=== PATIENT | female | born 1955 | race Caucasian/White ===

== ENCOUNTER → 2017-04-04 | Outpatient (CLI) | payer BC ==
--- NOTE | 2017-04-09 07:48 | MM ---
Reason for exam: screening (asymptomatic). Last mammogram was performed 1 year and 2 months ago. History: Patient is postmenopausal. Family history of breast cancer in mother at age 61 and breast cancer in sister at age 61. Took hormonal contraceptives for 15 years. Physical Findings: A clinical breast exam by your physician is recommended on an annual basis and results should be correlated with mammographic findings. MG Screening Mammo w CAD Bilateral CC and MLO view(s) were taken. Prior study comparison: February 14, 2016, bilateral MG screening mammo w CAD. January 18, 2015, bilateral MG diagnostic mammo w CAD MICHAEL. The breast tissue is heterogeneously dense. This may lower the sensitivity of mammography. There is chronic nodularity bilaterally. No significant changes when compared with prior studies. ASSESSMENT: Benign, BI-RAD 2 RECOMMENDATION: Routine screening mammogram of both breasts in 1 year.
== END | disposition home or self-care (01) ==
LOC: RADMAMWWP 08:00
PROVIDERS: ATTEND Family Medicine
DX: Z12.31 Encounter for screening mammogram for malignant neoplasm of breast (principal)

== ENCOUNTER → 2018-04-22 | Outpatient (CLI) | payer BC ==
--- NOTE | 2018-04-23 11:43 | MM ---
Reason for exam: screening (asymptomatic). Last mammogram was performed 1 year and 1 month ago. History: Patient is postmenopausal. Family history of breast cancer in mother at age 61 and breast cancer in sister at age 61. Took hormonal contraceptives for 15 years. Physical Findings: A clinical breast exam by your physician is recommended on an annual basis and results should be correlated with mammographic findings. MG 3D Screening Mammo W/Cad Bilateral CC and MLO view(s) were taken. Prior study comparison: April 04, 2017, bilateral MG screening mammo w CAD. February 14, 2016, bilateral MG screening mammo w CAD. The breast tissue is heterogeneously dense. This may lower the sensitivity of mammography. Finding: There is stable architectural distortion in the outer quadrant, posterior position of the left breast. New 11mm round circumscribed lesion in the right breast middle depth upper outer aspect 6-7cm from the nipple. ASSESSMENT: Incomplete: need additional imaging evaluation, BI-RAD 0 RECOMMENDATION: Ultrasound of the right breast. [facility] will attempt to contact patient to return for ultrasound.
== END | disposition home or self-care (01) ==
LOC: RADMAMWWP 10:22
PROVIDERS: ATTEND Family Medicine
DX: Z12.31 Encounter for screening mammogram for malignant neoplasm of breast (principal)
CPT/HCPCS: 77063; 77067

== ENCOUNTER → 2018-04-25 | Outpatient (CLI) | payer BC ==
--- NOTE | 2018-04-25 10:48 | USB ---
Reason for exam: additional evaluation requested from abnormal screening. History: Patient is postmenopausal. Family history of breast cancer in mother at age 61 and breast cancer in sister at age 61. Took hormonal contraceptives for 15 years. Physical Findings: Nurse did not find any significant physical abnormalities on exam. US Breast Workup Limited RT Right limited breast ultrasound including focal area of concern, retroareolar and axilla demonstrates a 9 x 4 x 8mm cystic cluster at 7 o'clock, a 9 x 6 x 8mm cystic lesion at 8 o'clock, a 5 x 2 x 5mm lesion too small to characterize at 11 o'clock and a 4 x 3 x 3mm lesion too small to characterize at 12 o'clock. These results were verbally communicated with the patient and result sheet given to the patient on 04/25/18. ASSESSMENT: Probably benign, BI-RAD 3 RECOMMENDATION: Follow-up diagnostic mammogram and ultrasound of the right breast in 6 months.
== END ==
LOC: RADUSWWP 09:37
PROVIDERS: ATTEND Family Medicine
DX: R92.8 Other abnormal and inconclusive findings on diagnostic imaging of breast (principal)

== ENCOUNTER 2018-06-05 19:21 | Emergency (ER) | payer BC ==
[2018-06-05] MEDS ORDERED: SODIUM CHLORIDE 0.9% 500 ML 500 ML IV STA (20:06)
--- NOTE | 2018-06-05 20:10 | ED ---
Abdominal Pain HPI - General Source: patient Mode of arrival: wheelchair <Dorcas Brewer - Last Filed: 06/05/18 22:15> <Laura Alarcon - Last Filed: 06/06/18 04:43> - General Chief Complaint: Abdominal Pain Stated Complaint: abd pain Time Seen by Provider: 06/05/18 19:56 - History of Present Illness Initial Comments: 62-year-old female patient presents to the emergency department today for evaluation of midepigastric abdominal pain. Patient states the pain started suddenly while eating approximate one hour ago. Patient states that the pain was sharp and cramping. She denies any radiation of the pain to her back. Patient states that since the pain started she can detect a gurgling in the area of her stomach. Patient has had 1 previous episode similar to this about a week ago. States in the pain comes on it is sudden and causes her to double over. Patient denies any shortness of breath, sweats, or chest pain with this event. She denies any fevers or chills. States that she was eating red beans and rice when it started. Patient does have history of cholecystectomy and rheumatoid arthritis. She denies any nausea, vomiting, constipation, or diarrhea. She is passing gas. Denies any hematuria, dysuria, urinary frequency , urinary urgency. Patient denies any recent rash, back pain, numbness, tingling , dizziness, weakness, headache, visual changes, or any other complaints. (Dorcas Brewer) - Related Data Home Medications Medication Instructions Recorded Confirmed Acetaminophen [Tylenol Arthritis] 650 mg PO DAILY PRN 06/05/18 06/05/18 Aspirin EC [Ecotrin Low Dose] 81 mg PO DAILY 06/05/18 06/05/18 Azithromycin [Zithromax Z-pack] See Taper PO DIRECTED 06/05/18 06/05/18 Benzonatate [Tessalon Perles] 100 mg PO TID PRN 06/05/18 06/05/18 Biotin 5 mg PO DAILY 06/05/18 06/05/18 Mervin/D3/Mag11/Zinc/[employer]/Arnav/Bor 1 tab PO DAILY 06/05/18 06/05/18 [Caltrate 600+D Plus Tablet] Cetirizine HCl [Zyrtec] 10 mg PO DAILY 06/05/18 06/05/18 Cranberry Fruit Extract [Cranberry] 200 mg PO DAILY 06/05/18 06/05/18 Cyclobenzaprine [Flexeril] 10 mg PO HS PRN 06/05/18 06/05/18 Furosemide [Lasix] 20 mg PO DAILY 06/05/18 06/05/18 Glucosam/Chond/Hyalu/Cf Borate 3 tab PO DAILY 06/05/18 06/05/18 [Move Free Joint Health Tablet] Hydroxychloroquine Sulfate 200 mg PO BID 06/05/18 06/05/18 [Plaquenil] Levothyroxine Sodium [Synthroid] 137 mcg PO DAILY 06/05/18 06/05/18 Lisinopril [Zestril] 20 mg PO DAILY 06/05/18 06/05/18 Magnesium Oxide [Singh] 500 mg PO DAILY 06/05/18 06/05/18 Milk Thistle 150 mg PO DAILY 06/05/18 06/05/18 Montelukast Sodium [Singulair] 10 mg PO DAILY 06/05/18 06/05/18 Davilla-3 Fatty Acids [Davilla-3] 1,000 mg PO DAILY 06/05/18 06/05/18 Omeprazole 20 mg PO DAILY 06/05/18 06/05/18 Tetrahydrozoline 0.05% Ophth 1 drop BOTH EYES DAILY 06/05/18 06/05/18 [Visine Eye Drops] azaTHIOprine [Imuran] 50 mg PO TID 06/05/18 06/05/18 Allergies Allergy/AdvReac Type Severity Reaction Status Date / Time No Known Allergies Allergy Verified 06/05/18 19:41 Review of Systems ROS Other: All systems not noted in ROS Statement are negative. <Dorcas Brewer - Last Filed: 06/05/18 22:15> ROS Other: All systems not noted in ROS Statement are negative. <Laura Alarcon - Last Filed: 06/06/18 04:43> ROS Statement: Those systems with pertinent positive or pertinent negative responses have been documented in the HPI. Past Medical History Past Medical History: GERD/Reflux, Hypertension, Thyroid Disorder Additional Past Medical History / Comment(s): Hashimotos, Rheumatoid arthritis, MTHFR enzyme gene mutation, hiatal hernia History of Any Multi-Drug Resistant Organisms: None Reported Past Surgical History: Cholecystectomy Past Psychological History: No Psychological Hx Reported Smoking Status: Never smoker Past Alcohol Use History: Occasional Past Drug Use History: None Reported <Dorcas Brewer M - Last Filed: 06/05/18 22:15> General Exam General appearance: alert, in no apparent distress, other (This is a well- developed, well-nourished adult female patient in no acute distress. Vital signs upon presentation are temperature 98.0F, pulse 69, respirations 22, blood pressure 124/65, pulse ox 98% on room air.) Eye exam: Present: normal appearance, PERRL, EOMI. Absent: scleral icterus, conjunctival injection, periorbital swelling ENT exam: Present: normal exam, normal oropharynx, mucous membranes moist Respiratory exam: Present: normal lung sounds bilaterally. Absent: respiratory distress, wheezes, rales, rhonchi, stridor Cardiovascular Exam: Present: regular rate, normal rhythm, normal heart sounds. Absent: systolic murmur, diastolic murmur, rubs, gallop, clicks GI/Abdominal exam: Present: soft, normal bowel sounds. Absent: distended, tenderness, guarding, rebound, rigid Neurological exam: Present: alert, oriented X3, CN II-XII intact Psychiatric exam: Present: normal affect, normal mood Skin exam: Present: warm, dry, intact, normal color. Absent: rash <Dorcas Brewer M - Last Filed: 06/05/18 22:15> Vital Signs 06/05/18 06/05/18 19:21 22:15 Temperature 98.0 F 98.3 F Pulse Rate 69 72 Respiratory 22 16 Rate Blood Pressure 124/65 138/62 O2 Sat by Pulse 98 98 Oximetry Medical Decision Making - Lab Data Result diagrams: 06/05/18 20:30 06/05/18 20:30 - EKG Data -: EKG Interpreted by Wy - Radiology Data Radiology results: report reviewed, image reviewed <Dorcas Brewer - Last Filed: 06/05/18 22:15> - Lab Data Result diagrams: 06/05/18 20:30 06/05/18 20:30 <Laura Alarcon - Last Filed: 06/06/18 04:43> - Medical Decision Making 62-year-old female patient presents to the emergency department today for complaints of midepigastric abdominal pain that started approximately an hour prior to arrival while she was eating. Pain had resolved by the time of my evaluation however patient did request testing. We did perform labs which were unremarkable. EKG showed normal sinus rhythm. KUB abdominal x-ray was obtained and did show overall nonspecific bowel gas pattern however did show presence of the enlarged running hiatal hernia. Upon reevaluation patient still resting comfortably with no pain. We did discuss findings and that her symptoms could be related to the hiatal hernia. She has seen Dr. Ochoa in the past, she'll be discharged with instructions to follow-up with him for further evaluation. She is instructed to follow up with her primary care physician for recheck in 1-2 days. Return parameters were discussed in detail. She verbalizes understanding and agrees with this plan. (Dorcas Brewer) I was available for consultation in the emergency department. The history and physical exam were done by the midlevel provider. I was consulted for this patient's care. I reviewed the case with the midlevel provider and based on their presentation of the patient, I agree with the assessment, medical decision making and plan of care as documented. (Laura Alarcon) - Lab Data Lab Results 06/05/18 06/05/18 06/05/18 Range/Units 20:30 20:30 20:30 WBC 5.6 (3.8-10.6) k/uL RBC 4.31 (3.80-5.40) m/uL Hgb 13.7 (11.4-16.0) gm/dL Hct 40.5 (34.0-46.0) % MCV 94.0 (80.0-100.0) fL MCH 31.8 (25.0-35.0) pg MCHC 33.9 (31.0-37.0) g/dL RDW 14.4 (11.5-15.5) % Plt Count 375 (150-450) k/uL Neutrophils % 65 % Lymphocytes % 23 % Monocytes % 6 % Eosinophils % 2 % Basophils % 1 % Neutrophils # 3.6 (1.3-7.7) k/uL Lymphocytes # 1.3 (1.0-4.8) k/uL Monocytes # 0.4 (0-1.0) k/uL Eosinophils # 0.1 (0-0.7) k/uL Basophils # 0.0 (0-0.2) k/uL PT (9.0-12.0) sec INR (<1.2) APTT (22.0-30.0) sec Sodium 138 (137-145) mmol/L Potassium 4.2 (3.5-5.1) mmol/L Chloride 105 (98-107) mmol/L Carbon Dioxide 25 (22-30) mmol/L Anion Gap 8 mmol/L BUN 31 H (7-17) mg/dL Creatinine 0.99 (0.52-1.04) mg/dL Est GFR (CKD-EPI)AfAm 72 (>60 ml/min/1.73 sqM) Est GFR (CKD-EPI)NonAf 62 (>60 ml/min/1.73 sqM) Glucose 121 H (74-99) mg/dL Calcium 9.6 (8.4-10.2) mg/dL Total Bilirubin 0.8 (0.2-1.3) mg/dL AST 33 (14-36) U/L ALT 39 (9-52) U/L Alkaline Phosphatase 137 H (38-126) U/L Total Creatine Kinase 86 (30-135) U/L CK-MB (CK-2) 1.1 (0.0-2.4) ng/mL CK-MB (CK-2) Rel Index 1.3 Troponin I <0.012 (0.000-0.034) ng/mL Total Protein 6.5 (6.3-8.2) g/dL Albumin 3.8 (3.5-5.0) g/dL Amylase 58 (30-110) U/L Lipase 163 (23-300) U/L Urine Color Urine Appearance (Clear) Urine pH (5.0-8.0) Ur Specific Wolcott (1.001-1.035) Urine Protein (Negative) Urine Glucose (UA) (Negative) Urine Ketones (Negative) Urine Blood (Negative) Urine Nitrite (Negative) Urine Bilirubin (Negative) Urine Urobilinogen (<2.0) mg/dL Ur Leukocyte Esterase (Negative) Urine RBC (0-5) /hpf Urine WBC (0-5) /hpf Ur Squamous Epith Cells (0-4) /hpf Urine Bacteria (None) /hpf Hyaline Casts (0-2) /lpf Urine Mucus (None) /hpf 06/05/18 06/05/18 Range/Units 20:30 21:17 WBC (3.8-10.6) k/uL RBC (3.80-5.40) m/uL Hgb (11.4-16.0) gm/dL Hct (34.0-46.0) % MCV (80.0-100.0) fL MCH (25.0-35.0) pg MCHC (31.0-37.0) g/dL RDW (11.5-15.5) % Plt Count (150-450) k/uL Neutrophils % % Lymphocytes % % Monocytes % % Eosinophils % % Basophils % % Neutrophils # (1.3-7.7) k/uL Lymphocytes # (1.0-4.8) k/uL Monocytes # (0-1.0) k/uL Eosinophils # (0-0.7) k/uL Basophils # (0-0.2) k/uL PT 10.1 (9.0-12.0) sec INR 1.0 (<1.2) APTT 22.8 (22.0-30.0) sec Sodium (137-145) mmol/L Potassium (3.5-5.1) mmol/L Chloride (98-107) mmol/L Carbon Dioxide (22-30) mmol/L Anion Gap mmol/L BUN (7-17) mg/dL Creatinine (0.52-1.04) mg/dL Est GFR (CKD-EPI)AfAm (>60 ml/min/1.73 sqM) Est GFR (CKD-EPI)NonAf (>60 ml/min/1.73 sqM) Glucose (74-99) mg/dL Calcium (8.4-10.2) mg/dL Total Bilirubin (0.2-1.3) mg/dL AST (14-36) U/L ALT (9-52) U/L Alkaline Phosphatase (38-126) U/L Total Creatine Kinase (30-135) U/L CK-MB (CK-2) (0.0-2.4) ng/mL CK-MB (CK-2) Rel Index Troponin I (0.000-0.034) ng/mL Total Protein (6.3-8.2) g/dL Albumin (3.5-5.0) g/dL Amylase (30-110) U/L Lipase (23-300) U/L Urine Color Yellow Urine Appearance Clear (Clear) Urine pH 5.5 (5.0-8.0) Ur Specific Wolcott 1.025 (1.001-1.035) Urine Protein 1+ H (Negative) Urine Glucose (UA) Negative (Negative) Urine Ketones Negative (Negative) Urine Blood Negative (Negative) Urine Nitrite Negative (Negative) Urine Bilirubin Negative (Negative) Urine Urobilinogen <2.0 (<2.0) mg/dL Ur Leukocyte Esterase Moderate H (Negative) Urine RBC 1 (0-5) /hpf Urine WBC 5 (0-5) /hpf Ur Squamous Epith Cells 4 (0-4) /hpf Urine Bacteria Rare H (None) /hpf Hyaline Casts 24 H (0-2) /lpf Urine Mucus Moderate H (None) /hpf - EKG Data EKG Comments: EKG obtained at 2023 shows normal sinus rhythm with ventricular rate is 74, OK interval 168, QR bahai 94, QTC 426, QTc 472. No evidence of ST elevation or depression. (Dorcas Brewer) - Radiology Data Two-view x-ray of the abdomen was obtained. There is no sign of intestinal structure pneumoperitoneum. Fecal pattern is normal. There are clips from cholecystectomy. There is large hiatal hernia. There are no pathologic calcifications over the kidneys. Impression by Dr. Torres shows nonacute abdomen. Large hiatal hernia. No significant change. Hiatal hernia is larger. (Dorcas Brewer) Disposition Is patient prescribed a controlled substance at d/c from ED?: No Time of Disposition: 21:57 <Dorcas Brewer - Last Filed: 06/05/18 22:15> <Laura Alarcon - Last Filed: 06/06/18 04:43> Clinical Impression: Abdominal pain, Hiatal hernia Disposition: HOME SELF-CARE Condition: Good Instructions: Hiatal Hernia (ED), Abdominal Pain (ED) Additional Instructions: Follow-up with GI specialist for recheck as soon as possible. Follow-up with your primary care physician for recheck in 1-2 days. Return here immediately for any new, worsening, or concerning symptoms Referrals: Zach King MD [Primary Care Provider] - 1-2 days Franklin Andrews MD [STAFF PHYSICIAN] - 1-2 days
[2018-06-05 20:43] LABS: Basophils % (A) 1 %; Eosinophils # (A) 0.1 k/uL (0-0.7); Eosinophils % (A) 2 %; HCT 40.5 % (34.0-46.0); HGB 13.7 gm/dL (11.4-16.0); Lymphocytes # (A) 1.3 k/uL (1.0-4.8); Lymphocytes % (A) 23 %; MCH 31.8 pg (25.0-35.0); MCHC 33.9 g/dL (31.0-37.0); Mean Platelet Volume 6.9; Monocytes # (A) 0.4 k/uL (0-1.0); Monocytes % (A) 6 %; Neutrophils # (A) 3.6 k/uL (1.3-7.7); Neutrophils % (A) 65 %; Platelet Count 375 k/uL (150-450); RBC 4.31 m/uL (3.80-5.40); RDW 14.4 % (11.5-15.5); WBC 5.6 k/uL (3.8-10.6)
--- NOTE | 2018-06-05 20:45 | XR ---
EXAMINATION TYPE: XR KUB DATE OF EXAM: 06/05/2018 COMPARISON: 10/20/2012 HISTORY: Epigastric pain TECHNIQUE: 2 views upright FINDINGS: There is no sign of intestinal obstruction or pneumoperitoneum. Fecal pattern is normal. Th ere are clips from cholecystectomy. There is a large hiatal hernia. There are no pathologic calcifica tions over the kidneys. IMPRESSION: Nonacute abdomen. Large hiatal hernia. No significant change. Hiatal hernia is larger.
[2018-06-05 20:51] LABS: Partial Thromboplastin Time 22.8 sec (22.0-30.0); Prothrombin Time 10.1 sec (9.0-12.0)
[2018-06-05 20:55] LABS: Albumin 3.8 g/dL (3.5-5.0); Calcium 9.6 mg/dL (8.4-10.2); Potassium 4.2 mmol/L (3.5-5.1); Total Bilirubin 0.8 mg/dL (0.2-1.3); Total Protein 6.5 g/dL (6.3-8.2)
[2018-06-05 20:57] LABS: Creatine Kinase 86 U/L (30-135)
[2018-06-05 21:08] LABS: Creatine Kinase MB 1.1 ng/mL (0.0-2.4)
[2018-06-05 21:26] LABS: Troponin I <0.012 ng/mL (0.000-0.034)
[2018-06-05 21:38] LABS: Appearance,Urine Clear (Clear); Bacteria,Urine Rare /hpf; Bilirubin,Urine Negative (Negative); Blood,Urine Negative (Negative); Color,Urine Yellow; Glucose,Urine (UA) Negative (Negative); Hyaline Casts,Urine 24 /lpf (0-2); Ketones,Urine Negative (Negative); Leukocyte Esterase,Urine Moderate (Negative); Mucus,Urine Moderate /hpf; Nitrite,Urine Negative (Negative); PH, Urine 5.5 (5.0-8.0); Protein,Urine 1+ (Negative); RBC,Urine 1 /hpf (0-5); Specific Gravity,Urine 1.025 (1.001-1.035); Squamous Epithelial Cell,Urine 4 /hpf (0-4); Urobilinogen,Urine <2.0 mg/dL (<2.0); WBC,Urine 5 /hpf (0-5)
[2018-06-05 22:16] VITALS: BP 138/62; PULSE 72; RESP 16; TEMP 98.3
== END 2018-06-05 22:17 | disposition home or self-care (01) ==
LOC: EC 19:21
DX: K44.9 Diaphragmatic hernia without obstruction or gangrene (principal); I10 Essential (primary) hypertension; E07.9 Disorder of thyroid, unspecified; M06.9 Rheumatoid arthritis, unspecified; Z90.49 Acquired absence of other specified parts of digestive tract; Z79.82 Long term (current) use of aspirin; Z79.899 Other long term (current) drug therapy
CPT/HCPCS: 36415; 74018; 80053; 81001; 82150; 82550; 82553; 83690; 84484; 85025; 85610; 85730; 87086; 93005; 99284

== ENCOUNTER 2018-07-17 09:01 | Day surgery (SDC) | payer BC ==
[2018-07-15 14:41] VITALS: BMI 37.1
[~2018-07-17 09:01] MED LIST: LACTATED RINGERS 1,000 ML IV SCH; LIDOCAINE 1% 20 ML VIAL (10MG/ML) FOR IV START INTRADERMA PRN
[2018-07-17 09:37] VITALS: RESP 16; TEMP 97.9
[2018-07-17 09:48] LABS: Glucose,Whole Blood 97 mg/dL (75-99)
[2018-07-17] MEDS ORDERED: PROPOFOL 10 MG/ML 20 ML VIAL IV ONE (10:28)
[2018-07-17] MEDS ORDERED: LIDOCAINE 1% INJ 10MG/ML (20 ML MDV) ONE (10:28)
[2018-07-17] MEDS ORDERED: MIDAZOLAM 2 MG/2 ML VIAL ONE (10:28)
[2018-07-17] MEDS ORDERED: GLYCOPYRROLATE 0.2 MG/ML 2 ML VIAL ONE (10:28)
[2018-07-17] MEDS ORDERED: fentaNYL (PF) 50 MCG/ML 2 ML AMP ONE (10:28)
--- NOTE | 2018-07-17 11:17 | P.PCN ---
Date of Procedure: 07/17/18 Procedure(s) Performed: Procedure: Esophagogastroduodenoscopy and biopsy and esophageal dilation using the Microvasive xzhyoto-hem-ppjly balloon dilator size 18-20 mm Preoperative diagnosis: Chronic reflux and esophageal dysphagia. Postoperative diagnosis: 1. Hiatal hernia and Schatzki B ring dilated up to 20 mm. 2. Mild antral gastritis. 3. Biopsies obtained from the duodenum, antrum and esophagus. Preparation and sedation: Was provided by anesthesia. Brief clinical history: The patient is a 62-year-old female who is scheduled for this evaluation because of chronic reflux and history of esophageal dysphagia with at least 4 episodes of obstructive dysphagia in the past. The patient was in the emergency room last month with sharp abdominal and side pain and was noted to have an enlarging hiatal hernia on x-ray. She takes omeprazole to control heartburn. Her prior EGD was in 2012. Procedure: With the patient on her left lateral decubitus position and after informed consent and adequate sedation, I passed the Olympus-GIF 190L video upper endoscope through the cricopharyngeus down the esophagus. GE junction was around 33-34 cm from the incisors and there was a moderately sized hiatal hernia and there was a nonobstructing Schatzki B ring. The endoscope was then passed into the stomach which was insufflated with air and inspected in detail including the retroflex view in the cardia. There was some mottling and erythema in the antrum but no ulcers or erosions. Pyloric channel, duodenal bulb, post bulbar area and descending duodenum appeared within normal limits. Because of her symptoms, I obtained biopsies from the duodenum and antrum then I proceeded to dilate the esophagus and I concluded the exam by obtaining biopsies from the esophagus. I used the Microvasive pyrbyyb-bvt-wdotn balloon dilator size 18-20 mm to dilate the esophageal ring. It was passed through the operating channel of the endoscope centered at the level of the stricture and inflated in a stepwise fashion first to 18, then 19 and finally to 20 mm. The patient tolerated the procedure well and did not have any immediate complications. Plan: The patient was reassured. Will await biopsy results and make further plans based on her course and biopsy results. I will keep you updated on her progress.
[2018-07-17 11:50] VITALS: BP 114/78; PULSE 64
== END 2018-07-17 12:06 | disposition home or self-care (01) ==
LOC: ORWHC2ENDO 09:01
DX: K29.50 Unspecified chronic gastritis without bleeding (principal); K21.9 Gastro-esophageal reflux disease without esophagitis; K44.9 Diaphragmatic hernia without obstruction or gangrene; K22.2 Esophageal obstruction; I10 Essential (primary) hypertension; M06.9 Rheumatoid arthritis, unspecified; E72.12 Methylenetetrahydrofolate reductase deficiency; Z88.5 Allergy status to narcotic agent; Z87.891 Personal history of nicotine dependence; E06.3 Autoimmune thyroiditis; Z79.890 Hormone replacement therapy; Z79.82 Long term (current) use of aspirin; Z79.899 Other long term (current) drug therapy
CPT/HCPCS: 88305; 43239; 43249; J2250; J2001; J3010; J2704; C1726

== ENCOUNTER → 2018-11-07 | Outpatient (CLI) | payer BC ==
--- NOTE | 2018-11-07 10:55 | MM ---
Reason for exam: follow-up at short interval from prior study. Last mammogram was performed 7 months ago. History: Patient is postmenopausal. Family history of breast cancer in mother at age 61 and breast cancer in sister at age 61. Took hormonal contraceptives for 15 years. Physical Findings: Nurse Summary: 1cm and 0.5cm nodule in the right breast at 12 o'clock and 6 o'clock (nurse kp). MG 3D Diag Mammo W/Cad RT CC and MLO view(s) were taken of the right breast. Prior study comparison: April 22, 2018, bilateral MG 3d screening mammo w/cad. April 04, 2017, bilateral MG screening mammo w CAD. The breast tissue is heterogeneously dense. This may lower the sensitivity of mammography. No significant new findings when compared with previous films. These results were verbally communicated with the patient and result sheet given to the patient on 11/07/18. ASSESSMENT: Benign, BI-RAD 2 RECOMMENDATION: Return to routine screening mammogram schedule for both breasts. Back on schedule.
--- NOTE | 2018-11-07 10:59 | USB ---
Reason for exam: follow-up at short interval from prior study. History: Patient is postmenopausal. Family history of breast cancer in mother at age 61 and breast cancer in sister at age 61. Took hormonal contraceptives for 15 years. US Breast RT Right complete breast ultrasound includes all four quadrants, the retroareolar region and axilla. Finding demonstrates a 0.5 x 0.3 x 0.3cm lesion too small to characterize at 12 o'clock, a 0.5 x 0.4 x 0.4cm lesion too small to characterize at 3 o'clock, a 0.5 x 0.3 x 0.4cm lesion too small to characterize at 7 o'clock, a 1.0 x 0.6 x 0.7cm cystic lesion at 8 o'clock and a 0.7 x 0.5 x 0.7cm cystic lesion at the posterior nipple. These results were verbally communicated with the patient and result sheet given to the patient on 11/07/18. ASSESSMENT: Probably benign, BI-RAD 3 RECOMMENDATION: Ultrasound of the right breast in 6 months.
== END | disposition home or self-care (01) ==
LOC: RADMAMWWP 09:07
PROVIDERS: ATTEND Family Medicine
DX: R92.8 Other abnormal and inconclusive findings on diagnostic imaging of breast (principal)
CPT/HCPCS: 77061; 77065

== ENCOUNTER → 2019-07-14 | Outpatient (CLI) | payer BC ==
--- NOTE | 2019-07-14 09:48 | USB ---
Reason for exam: clinical finding. History: Patient is postmenopausal. Family history of breast cancer in mother at age 61 and breast cancer in sister at age 61. Took hormonal contraceptives for 15 years. Physical Findings: Nurse did not find any significant physical abnormalities on exam. US Breast RT Right complete breast ultrasound includes all four quadrants, the retroareolar region and axilla. Finding demonstrates a 4 x 2 x 2mm oval, cystic lesion at 12 o'clock, a 4 x 3 x 3mm oval, cystic lesion at 4 o'clock, a 5 x 2 x 6mm oval, cystic lesion at 7 o'clock, a 10 x 7 x 16mm cystic lesion at 8 o'clock, a 4 x 3 x 4mm mixed lesion too small to characterize at 8 o'clock, a 4 x 3 x 3mm mixed lesion at 9 o'clock, a 4 x 5 x 5mm cystic lesion at 10 o'clock and a 9 x 8 x 9mm cystic lesion at the posterior nipple. These results were verbally communicated with the patient and result sheet given to the patient on 07/14/19. ASSESSMENT: Benign, BI-RAD 2 RECOMMENDATION: Follow-up diagnostic mammogram of both breasts in 4 months. Back on schedule for November 2019. Ultrasound of the right breast in 6 months.
== END | disposition home or self-care (01) ==
LOC: RADUSWWP 08:22
PROVIDERS: ATTEND Family Medicine
DX: R92.8 Other abnormal and inconclusive findings on diagnostic imaging of breast (principal)

== ENCOUNTER → 2020-03-23 | Outpatient (CLI) | payer BC ==
--- NOTE | 2020-03-23 14:14 | MM ---
Reason for exam: follow-up at short interval from prior study. Last mammogram was performed 1 year and 4 months ago. History: Patient is postmenopausal. Family history of breast cancer in mother at age 61 and breast cancer in sister at age 61. Took hormonal contraceptives for 15 years. Physical Findings: Nurse did not find any significant physical abnormalities on exam. MG 3D Diag Mammo W/Cad MICHAEL Bilateral CC and MLO view(s) were taken. Prior study comparison: November 07, 2018, right breast MG 3d diag mammo w/cad RT. April 22, 2018, bilateral MG 3d screening mammo w/cad. The breast tissue is heterogeneously dense. This may lower the sensitivity of mammography. Stable benign calcifications. There is chronic nodularity bilaterally. No significant new findings when compared with previous films. These results were verbally communicated with the patient and result sheet given to the patient on 03/23/20. ASSESSMENT: Benign, BI-RAD 2 RECOMMENDATION: Routine screening mammogram of both breasts in 1 year.
== END | disposition home or self-care (01) ==
LOC: RADMAMWWP 13:03
PROVIDERS: ATTEND Family Medicine
DX: R92.8 Other abnormal and inconclusive findings on diagnostic imaging of breast (principal); Z80.3 Family history of malignant neoplasm of breast
CPT/HCPCS: 77062; 77066

== ENCOUNTER → 2021-05-02 | Outpatient (CLI) | payer BC ==
--- NOTE | 2021-05-04 11:44 | MM ---
Reason for exam: screening (asymptomatic). Last mammogram was performed 1 year and 1 month ago. History: Patient is postmenopausal. Family history of breast cancer in mother at age 61 and breast cancer in sister at age 61. Took hormonal contraceptives for 15 years. Physical Findings: A clinical breast exam by your physician is recommended on an annual basis and results should be correlated with mammographic findings. MG 3D Screening Mammo W/Cad Bilateral CC and MLO view(s) were taken. Prior study comparison: March 23, 2020, bilateral MG 3d diag mammo w/cad MICHAEL. November 07, 2018, right breast MG 3d diag mammo w/cad RT. The breast tissue is heterogeneously dense. This may lower the sensitivity of mammography. No significant changes when compared with prior studies. ASSESSMENT: Benign, BI-RAD 2 RECOMMENDATION: Routine screening mammogram of both breasts in 1 year.
== END | disposition home or self-care (01) ==
LOC: RADMAMWWP 14:53
PROVIDERS: ATTEND Family Medicine
DX: Z12.31 Encounter for screening mammogram for malignant neoplasm of breast (principal); Z80.3 Family history of malignant neoplasm of breast
CPT/HCPCS: 77063; 77067

== ENCOUNTER → 2022-05-04 | Outpatient (CLI) | payer BC ==
--- NOTE | 2022-05-07 09:34 | MM ---
Reason for Exam: Screening (asymptomatic). Last screening mammogram was performed 12 month(s) ago. Patient History: Menarche at age 14. First Full-Term at age 21. Postmenopausal. Hormonal Contraceptives for 15 years until age 37. Sister had breast cancer, age 61. Mother had breast cancer, age 61. Risk Values: Bettina 5 year model risk: 7.6%. NCI Lifetime model risk: 27.4%. Prior Study Comparison: 11/07/2018 Right Diagnostic Mammogram, [facility]. 03/23/2020 Bilateral Diagnostic Mammogram, [facility]. 05/02/2021 Bilateral Screening Mammogram, [facility]. Tissue Density: The breast tissue is heterogeneously dense. This may lower the sensitivity of mammography. Findings: Analyzed By CAD. There are scattered and loosely grouped benign-appearing round calcifications throughout the bilateral breasts redemonstrated. There is no suspicious group of microcalcifications or new suspicious mass in either breast. Overall Assessment: Benign, BI-RAD 2 Management: Screening Mammogram of both breasts in 1 year. A clinical breast exam by your physician is recommended on an annual basis and results should be correlated with mammographic findings. Electronically signed and approved by: Holger Ferrell M.D.
== END | disposition home or self-care (01) ==
LOC: RADMAMWWP 15:03
PROVIDERS: ATTEND Family Medicine
DX: Z12.31 Encounter for screening mammogram for malignant neoplasm of breast (principal); Z78.0 Asymptomatic menopausal state; Z80.3 Family history of malignant neoplasm of breast
CPT/HCPCS: 77063; 77067

== ENCOUNTER → 2022-11-15 | Outpatient (CLI) | payer MEDICARE, OTHER ==
--- NOTE | 2022-11-16 08:35 | BD ---
EXAMINATION TYPE: Axial Bone Density DATE OF EXAM: 11/15/2022 CLINICAL HISTORY: 67 years old Female. ICD-10 CODE: M89.9 DISORDER OF BONE Height: 64 Weight: 217.4 FRAX RISK QUESTIONS: Alcohol (3 or more units per day): no Family History (Parent hip fracture): no Glucocorticoids (More than 3mos): no History of Fracture in Adulthood: wrist, foot Secondary Osteoporosis: 1. Type 1 Diabetes: no 2. Hyperthyroidism: no 3. Menopause before 45: no 4. Malnutrition: no 5. Chronic liver disease: no Rheumatoid Arthritis: yes past 10 years Current Tobacco Use: no RISK FACTORS HISTORY OF: Hip Fracture (Right/Left): no Spine Fracture: no History of Wrist Fracture: lt wrist When: age 38 Surgery to Spine/Hip(right/left)/Wrist (right/left): no Family History of Osteoporosis: no Active: no Diet low in dairy products/other sources of calcium: no Postmenopausal woman: yes Take estrogen and/or progesterone medications: no Lost more than 2 inches in height since high school: no Frequent falls: no Poor Health: no Hyperparathyroidism: no Adrenal Insufficiency: no MEDICATIONS: Prednisone or other steroids: no Thyroid Medications: Levothyroxin How Long: past 10 years Osteoporosis Medications: no Additional Medications: Hydroxychloroquine Sulfate, Azathioprine, BP Meds, Omeprazole, Caltrate, Mult i Vit., Additional History: EXAM MEASUREMENTS: Bone mineral densitometry was performed using the [employer] System. Bone mineral density as measured about the Lumbar spine is: ----- L1-L4(G/cm2): 1.018 T Score Values are as follows: ----- L1: -2.0 ----- L2: -1.6 ----- L3: -1.8 ----- L4: -0.5 ----- L1-L4: -1.4 Z Score Values are as follows: ----- L1: -1.6 ----- L2: -1.1 ----- L3: -1.4 ----- L4: 0.0 ----- L1-L4: -0.9 Bone mineral density has: decreased -2.7 % since study of: 05/31/2011 Bone mineral density about the R hip (g/cm2): 0.887 Bone mineral density about the L hip (g/cm2): 0.917 T Score values are as follows: -----R Neck: -1.0 -----L Neck: -1.0 -----R Total: -1.0 -----L Total: -0.7 Z Score values are as follows: -----R Neck: -0.2 -----L Neck: -0.3 -----R Total: -0.6 -----L Total: -0.3 Bone mineral density has: decreased -6.7 % since study of: 05/31/2011 FRAX%s: The graph provided illustrates a 12.3% chance for a major osteoporotic fx and a 0.9% chance f or the hips probability for fx in 10 years time. IMPRESSION: Osteopenia (T Score between -2.5 and -1). There is slightly increased risk of fracture and the patient may be considered for treatment. Re-Screen 2-5 years. NOTE: T-SCORE=SD OF THE YOUNG ADULT MEAN.
== END | disposition home or self-care (01) ==
LOC: RADBDWWP 14:59
PROVIDERS: ATTEND Family Medicine
DX: M85.89 Other specified disorders of bone density and structure, multiple sites (principal); Z78.0 Asymptomatic menopausal state
CPT/HCPCS: 77080

== ENCOUNTER → 2023-05-21 | Outpatient (CLI) | payer MEDICARE, OTHER ==
--- NOTE | 2023-05-23 08:42 | MM ---
Reason for Exam: Screening (asymptomatic). Last mammogram was performed 1 year(s) and 1 month(s) ago. Patient History: Menarche at age 14. First Full-Term at age 21. Postmenopausal. Hormonal Contraceptives for 15 years until age 37. Sister had breast cancer, age 61. Mother had breast cancer, age 61. Risk Values: Bettina 5 year model risk: 7.8%. NCI Lifetime model risk: 26.6%. Prior Study Comparison: 03/23/2020 Bilateral Diagnostic Mammogram, [facility]. 05/02/2021 Bilateral Screening Mammogram, [facility]. 05/04/2022 Bilateral MG 3D screening mammo w/cad, [facility]. Tissue Density: The breast tissue is heterogeneously dense. This may lower the sensitivity of mammography. Findings: Analyzed By CAD. Left breast mass at 5.6 cm nipple on CC view laterally measuring 14 mm and 6.4 examination nipple on CC view measuring 17 mm. The larger is in the upper aspect on MLO view. The smaller is immediately adjacent to the larger one. Right breast: There is no suspicious group of microcalcifications or new suspicious mass. Overall Assessment: Incomplete: need additional imaging evaluation, BI-RAD 0 Management: Diagnostic Breast Ultrasound of the left breast. [facility] will attempt to contact patient to return for supplemental views and ultrasound if indicated. Patient should continue monthly self-breast exams. A clinical breast exam by your physician is recommended on an annual basis. This exam should not preclude additional follow-up of suspicious palpable abnormalities. Note on Bettina scores and lifetime risk: 1. A Bettina score greater than 3% is considered moderate risk. If this is the case, consider specialist referral to assess eligibility for a risk reducing agent. 2. If overall lifetime risk for the development of breast cancer is 20% or higher, the patient may qualify for future screening with alternating mammogram and breast MRI. Electronically signed and approved by: Allan De La Garza DO
== END | disposition home or self-care (01) ==
LOC: RADMAMWWP 16:25
PROVIDERS: ATTEND Family Medicine
DX: Z12.31 Encounter for screening mammogram for malignant neoplasm of breast (principal); Z78.0 Asymptomatic menopausal state; Z80.3 Family history of malignant neoplasm of breast
CPT/HCPCS: 77063; 77067

== ENCOUNTER → 2023-06-04 | Outpatient (CLI) | payer MEDICARE, OTHER ==
--- NOTE | 2023-06-04 11:39 | USB ---
Reason for Exam: Additional evaluation requested from abnormal screening. Patient History: Menarche at age 14. First Full-Term at age 21. Postmenopausal. Hormonal Contraceptives for 15 years until age 37. Sister had breast cancer, age 61. Mother had breast cancer, age 61. Risk Values: Bettina 5 year model risk: 7.8%. NCI Lifetime model risk: 26.6%. Technique: Method: Targeted. Prior Study Comparison: 05/02/2021 Bilateral Screening Mammogram, [facility]. 05/04/2022 Bilateral MG 3D screening mammo w/cad, [facility]. 05/21/2023 Bilateral MG 3D screening mammo w/cad, [facility]. Findings: The upper outer quadrant of the left breast, the axilla of the left breast and the retroareolar of the left breast were scanned. There is a pair of adjacent cysts in the left breast. This area at the 2:00 position 6 cm the nipple measures a total of 2.1 x 1.3 x 1.5 cm. Follow-up exam in 6 months to confirm stability. There appears to correspond to the mammographic finding.. Overall Assessment: Probably benign, BI-RAD 3 Management: Diagnostic Breast Ultrasound of the left breast in 6 months. A clinical breast exam by your physician is recommended on an annual basis and results should be correlated with mammographic findings. This exam should not preclude additional follow-up of suspicious palpable abnormalities. Results were given to the patient verbally at the time of exam. Electronically signed and approved by: Cam Short D.O. Radiologis
== END | disposition home or self-care (01) ==
LOC: RADUSWWP 10:58
PROVIDERS: ATTEND Family Medicine
DX: N60.02 Solitary cyst of left breast (principal); Z78.0 Asymptomatic menopausal state; Z80.3 Family history of malignant neoplasm of breast

== ENCOUNTER → 2023-11-18 | Outpatient (CLI) | payer MEDICARE, OTHER ==
--- NOTE | 2023-11-18 15:02 | USB ---
Reason for Exam: Follow-up at short interval from prior study. Patient History: Menarche at age 14. First Full-Term at age 21. Postmenopausal. Hormonal Contraceptives for 15 years until age 37. Sister had breast cancer, age 61. Mother had breast cancer, age 61. Risk Values: Bettina 5 year model risk: 7.9%. NCI Lifetime model risk: 25.7%. Technique: Method: Targeted. Prior Study Comparison: 05/02/2021 Bilateral Screening Mammogram, [facility]. 05/04/2022 Bilateral MG 3D screening mammo w/cad, [facility]. 05/21/2023 Bilateral MG 3D screening mammo w/cad, [facility]. Findings: The upper outer quadrant of the left breast, the axilla of the left breast and the retroareolar of the left breast were scanned. There is a complex cyst with partial septations measuring 1.9 x 1.7 x 1.2 cm at the 2:00 position 6 cm from the nipple. This has changed in configuration from prior examination. Suspicious interval change however is not evident. Additional small simple appearing cyst is at the 1:00 position. Follow-up ultrasound in 6 months is recommended. Screening mammography should be performed on schedule. Overall Assessment: Probably benign, BI-RAD 3 Management: Diagnostic Breast Ultrasound of the left breast in 6 months. Screening Mammogram of both breasts in 6 months. A clinical breast exam by your physician is recommended on an annual basis and results should be correlated with mammographic findings. This exam should not preclude additional follow-up of suspicious palpable abnormalities. Results were given to the patient verbally at the time of exam. Electronically signed and approved by: Cam Short D.O. Radiologis
== END | disposition home or self-care (01) ==
LOC: RADUSWWP 14:04
PROVIDERS: ATTEND Family Medicine
DX: N60.02 Solitary cyst of left breast (principal); Z78.0 Asymptomatic menopausal state; Z80.3 Family history of malignant neoplasm of breast

== ENCOUNTER → 2023-12-20 | Outpatient (CLI) | payer MEDICARE, OTHER ==
--- NOTE | 2023-12-20 09:36 | USB ---
Reason for Exam: Clinical finding. Patient History: Menarche at age 14. First Full-Term at age 21. Postmenopausal. Hormonal Contraceptives for 15 years until age 37. Sister had breast cancer, age 61. Mother had breast cancer, age 61. Risk Values: Bettina 5 year model risk: 7.9%. NCI Lifetime model risk: 25.7%. Technique: Method: Whole Breast Handheld. Prior Study Comparison: 05/02/2021 Bilateral Screening Mammogram, [facility]. 05/04/2022 Bilateral MG 3D screening mammo w/cad, [facility]. 05/21/2023 Bilateral MG 3D screening mammo w/cad, [facility]. Findings: The whole breast of the left breast, the axilla of the left breast and the retroareolar of the left breast were scanned. A complete US of all four quadrants of the breast , axilla, and retro-areolar region were reviewed. The patient's 2:00 palpable site, 6 cm from the nipple, there is a cyst measuring 1.8 cm, slightly smaller compared to 1.9 m on the recent 11/18/2023 exam. Scattered dense tissues are present. A few additional smaller cysts are noted scattered throughout measuring up to 6 mm. Overall Assessment: Probably benign, BI-RAD 3 Management: Diagnostic Mammogram of both breasts in 6 months. For a total one-year follow-up left breast and annual exam of the right breast. In the meantime, the patient can monitor the palpable cyst. If it remains symptomatic and if desired, percutaneous aspiration can be performed. A clinical breast exam by your physician is recommended on an annual basis and results should be correlated with mammographic findings. This exam should not preclude additional follow-up of suspicious palpable abnormalities. Results were given to the patient verbally at the time of exam. Electronically signed and approved by: Ania Ptaterson M.D. Radiologist
--- NOTE | 2023-12-20 09:47 | MM ---
Reason for Exam: Clinical finding. Last screening mammogram was performed 7 month(s) ago. Patient History: Menarche at age 14. First Full-Term at age 21. Postmenopausal. Hormonal Contraceptives for 15 years until age 37. Sister had breast cancer, age 61. Mother had breast cancer, age 61. Risk Values: Bettina 5 year model risk: 7.9%. NCI Lifetime model risk: 25.7%. Prior Study Comparison: 05/02/2021 Bilateral Screening Mammogram, [facility]. 05/04/2022 Bilateral MG 3D screening mammo w/cad, [facility]. 05/21/2023 Bilateral MG 3D screening mammo w/cad, [facility]. Tissue Density: Left: The breasts are heterogeneously dense, which may obscure small masses. Findings: Analyzed By CAD. Multiple areas of underlying nodularity redemonstrated. Dominant measuring 2.8 cm in the upper-outer quadrant with overlying palpable marker. Possibly slightly larger from 1.7 cm, previously. Further ultrasound evaluation recommended. Overall Assessment: Incomplete: need additional imaging evaluation, BI-RAD 0 Management: Diagnostic Breast Ultrasound of the left breast. Electronically signed and approved by: Ania Patterson M.D. Radiologist
== END | disposition home or self-care (01) ==
LOC: RADMAMWWP 07:55
PROVIDERS: ATTEND Family Medicine
DX: R92.332 Mammographic heterogeneous density, left breast (principal); N63.21 Unspecified lump in the left breast, upper outer quadrant; Z78.0 Asymptomatic menopausal state; Z80.3 Family history of malignant neoplasm of breast
CPT/HCPCS: 77065; 76641; G0279; 77061

== ENCOUNTER → 2024-06-23 | Outpatient (CLI) | payer MEDICARE, OTHER ==
--- NOTE | 2024-06-23 14:29 | MM ---
Reason for Exam: Follow-up at short interval from prior study. Last mammogram was performed 1 year(s) and 1 month(s) ago. Patient History: Menarche at age 14. First Full-Term at age 21. Postmenopausal. Hormonal Contraceptives for 15 years until age 37. Sister had breast cancer, age 61. Mother had breast cancer, age 61. Risk Values: Bettina 5 year model risk: 7.9%. NCI Lifetime model risk: 25.7%. Tissue Density: The breasts are heterogeneously dense, which may obscure small masses. Findings: Analyzed By CAD. Nodularity seen bilaterally. Nodules within the upper outer quadrant left breast at the 2:00 position significantly smaller in size. Follow-up ultrasound recommended. No new masses or suspicious microcalcifications. Overall Assessment: Incomplete: need additional imaging evaluation, BI-RAD 0 Management: Diagnostic Breast Ultrasound of the left breast. . Results were given to the patient verbally at the time of exam. Patient should continue monthly self-breast exams. A clinical breast exam by your physician is recommended on an annual basis. This exam should not preclude additional follow-up of suspicious palpable abnormalities. Note on Bettina scores and lifetime risk: 1. A Bettina score greater than 3% is considered moderate risk. If this is the case, consider specialist referral to assess eligibility for a risk reducing agent. 2. If overall lifetime risk for the development of breast cancer is 20% or higher, the patient may qualify for future screening with alternating mammogram and breast MRI. [facility], , 06/23/2024 2:14 PM. Electronically signed and approved by: Felice Perez M.D. Radiologis
--- NOTE | 2024-06-23 14:34 | USB ---
Reason for Exam: Follow-up at short interval from prior study. Patient History: Menarche at age 14. First Full-Term at age 21. Postmenopausal. Hormonal Contraceptives for 15 years until age 37. Sister had breast cancer, age 61. Mother had breast cancer, age 61. Risk Values: Bettina 5 year model risk: 7.9%. NCI Lifetime model risk: 25.7%. Technique: Method: Targeted. Prior Study Comparison: 05/04/2022 Bilateral MG 3D screening mammo w/cad, [facility]. 05/21/2023 Bilateral MG 3D screening mammo w/cad, [facility]. 12/20/2023 Left MG 3D diag mammo w/cad , [facility]. Findings: The upper outer quadrant of the left breast, the axilla of the left breast and the retroareolar of the left breast were scanned. The left 1:00 position demonstrates tiny 5 x 3 mm cyst which has decreased in size. At the 2:00 position there is a 4 mm cyst which has significantly decreased in size with prior measurement of up to 1.8 cm. No new lesions are seen. Overall Assessment: Benign, BI-RAD 2 Management: Screening Mammogram of both breasts in 1 year. A clinical breast exam by your physician is recommended on an annual basis and results should be correlated with mammographic findings. This exam should not preclude additional follow-up of suspicious palpable abnormalities. Results were given to the patient verbally at the time of exam. [facility], , 06/23/2024 2:30 PM. Electronically signed and approved by: Felice Perez M.D. Radiologis
== END | disposition home or self-care (01) ==
LOC: RADMAMWWP 13:31
PROVIDERS: ATTEND Family Medicine
DX: R92.8 Other abnormal and inconclusive findings on diagnostic imaging of breast (principal); R92.333 Mammographic heterogeneous density, bilateral breasts; Z78.0 Asymptomatic menopausal state; Z80.3 Family history of malignant neoplasm of breast
CPT/HCPCS: 77066; 76642; G0279; 77062

== ENCOUNTER → 2024-11-17 | Outpatient (CLI) | payer MEDICARE, OTHER ==
--- NOTE | 2024-11-18 12:08 | BD ---
EXAMINATION TYPE: Axial Bone Density DATE OF EXAM: 11/17/2024 CLINICAL HISTORY: 69 years old Female. ICD-10 CODE: M85.89 Oth spec dis of bone den and struct , Add itional History: Height: 64 in Weight: 222 lbs FRAX RISK QUESTIONS: History of Fracture in Adulthood: lt foot age 37; lt wrist age 40 Secondary Osteoporosis: 3. Menopause before 45: age 45 Rheumatoid Arthritis: yes RISK FACTORS HISTORY OF: History of Wrist Fracture: lt wrist age 40 MEDICATIONS: Thyroid Medications: yes Which medication: Levothyroxine How Lon+ years EXAM MEASUREMENTS: Bone mineral densitometry was performed using the [employer] System. Bone mineral density as measured about the Lumbar spine is: ----- L1-L4(G/cm2): 1.035 T Score Values are as follows: ----- L1: -1.6 ----- L2: -0.8 ----- L3: -1.7 ----- L4: -0.9 ----- L1-L4: -1.2 Z Score Values are as follows: ----- L1: -1.1 ----- L2: -0.4 ----- L3: -1.3 ----- L4: -0.5 ----- L1-L4: -0.8 Bone mineral density has: Increased 1.7% since study of: 11/15/2022 Bone mineral density about the R hip (g/cm2): 0.879 Bone mineral density about the L hip (g/cm2): 0.876 T Score values are as follows: -----R Neck: -0.9 -----L Neck: -1.7 -----R Total: -1.0 -----L Total: -1.0 Z Score values are as follows: -----R Neck: -0.1 -----L Neck: -0.9 -----R Total: -0.6 -----L Total: -0.6 Bone mineral density has: Decreased -2.8% since study of: 11/15/2022 FRAX%s: The graph provided illustrates a 14.7% chance for a major osteoporotic fx and a 1.8% chance f or the hips probability for fx in 10 years time. IMPRESSION: Osteopenia (T Score between -2.5 and -1). There is slightly increased risk of fracture and the patient may be considered for treatment. Re-Screen 2-5 years. NOTE: T-SCORE=SD OF THE YOUNG ADULT MEAN. [facility], , 11/18/2024 12:06 PM
== END | disposition home or self-care (01) ==
LOC: RADBDWWP 16:00
PROVIDERS: ATTEND Family Medicine
DX: M85.89 Other specified disorders of bone density and structure, multiple sites (principal)
CPT/HCPCS: 77080